=== PATIENT | female | born 1965 | race Caucasian/White ===

== ENCOUNTER 2022-01-13 16:29 | Emergency (ER) | payer OTHER ==
[~2022-01-13] VITALS: Ht 157.5 cm; Wt 68.5 kg
[2022-01-13] MEDS ORDERED: ONDANSETRON 4 MG/2 ML VIAL ONE (16:53)
[2022-01-13] MEDS ORDERED: LORAZEPAM 2 MG/1 ML VIAL ONE (16:54)
--- NOTE | 2022-01-13 16:58 | NUR ---
Pt arrived BIBA d/t anxiety/panic attack. Pt said that she had a panic attack "out of nowhere" with unknown trigger/s. Pt is also nauseous, denies pain. V/S are within normal limits except for respiration, tachypneic 24cpm, no SOB, no dyspnea present. Manifested moderate amt of perspiration. Pt also stated that she is a heavy smoker, used to smoke a pack of cigarettes a day to 7 sticks of cigarettes a day, last cigarette was 2hrs ago prior to ER arrival. Seen by DEEP for MSE.
[2022-01-13] MEDS: LORAZEPAM 2 MG/1 ML VIAL IV ONE (17:12)
[2022-01-13] MEDS: ONDANSETRON 4 MG/2 ML VIAL IV ONE (17:12)
[2022-01-13] MEDS: IV NORMAL SALINE 1000 ML BAG IV ONE (17:12)
[2022-01-13 17:19] LABS: CARBON DIOXIDE 26 mmol/L (21-32); CHLORIDE 104 mmol/L (98-107); CREATININE 0.7 mg/dL (0.6-1.3); GLUCOSE 111 mg/dL (74-106); POTASSIUM 3.3 mmol/L (3.5-5.1); UREA NITROGEN, BLOOD 11 mg/dL (7-18)
[2022-01-13 17:20] LABS: HEMATOCRIT 37.4 % (31.2-41.9); MEAN CORPUSCULAR HEMOGLOBIN 30.9 uug (24.7-32.8); MEAN CORPUSCULAR VOLUME 88.6 fL (75.5-95.3); PLATELET COUNT (AUTO) 314 K/uL (179-408)
[2022-01-13 17:30] LABS: ALANINE AMINOTRANSFERASE 18 U/L (14-59); ALKALINE PHOSPHATASE 93 U/L (50-136); ASPARTATE AMINOTRANSFERASE 13 U/L (15-37); BILIRUBIN,DIRECT < 0.1 mg/dL (0.0-0.2); BILIRUBIN,TOTAL 0.2 mg/dL (0.2-1.0)
[2022-01-13 17:43] LABS: THYROID STIMULATING HORMONE 1.213 mIU/mL (0.358-3.740)
--- NOTE | 2022-01-13 19:11 | NUR ---
Pt discharged to home in stable condition. Written and verbal after care instructions given. Pt verbalizes understanding of instructions. Stressed follow up or return to ER for worsening s/s.
[2022-01-13 19:12] VITALS: BP 122/63
== END 2022-01-13 19:11 | disposition home or self-care (01) ==
LOC: ER 16:29
DX: R07.9 Chest pain, unspecified (principal); F41.9 Anxiety disorder, unspecified; Z86.16 Personal history of COVID-19
CPT/HCPCS: 99285; 96374; 71045; 96361; 96375; 80076; 80048; 83690; 84443; 85025; 84484; 36415; 93005; J2060; J2405; J7040; A4663